=== PATIENT | male | born 1955 | race Caucasian/White ===

== ENCOUNTER 2018-06-19 17:36 | Emergency (ER) | payer MEDICAID, OTHER ==
[~2018-06-19] VITALS: Ht 175.3 cm; Wt 70.3 kg
[2018-06-19] MEDS ORDERED: ONDANSETRON 4 MG/2 ML VIAL IM ONE (17:45)
[2018-06-19] MEDS ORDERED: LISINOPRIL (17:45)
[2018-06-19] MEDS ORDERED: HYDROMORPHONE 1 MG/1 ML DISP.SYRIN IM ONE (17:45)
[2018-06-19] MEDS ORDERED: HYDROMORPHONE 2 MG/1 ML DISP.SYRIN ONE (17:47)
[2018-06-19] MEDS ORDERED: ONDANSETRON 4 MG/2 ML VIAL ONE (17:47)
--- NOTE | 2018-06-19 17:55 | NUR ---
Patient BIB [facility] for c/o back pain x4 days. Patient states pain worsen this AM and unable to ambulate without severe pain
[2018-06-19 18:27] LABS: *BILIRUBIN,URIN NEGATIVE (NEGATIVE); *BLOOD, URINE NEGATIVE (NEGATIVE); *CLARITY,URINE CLEAR (CLEAR); *COLOR,URINE YELLOW (YELLOW); *KETONES,URINE TRACE (NEGATIVE); *UROBILINOGEN,URINE 0.2 E.U./dl (NORMAL); LEUKOCYTE ESTERASE ,URINE NEGATIVE (NEGATIVE); NITRITE, URINE NEGATIVE (NEGATIVE); UGLUCOSE NEGATIVE (NEGATIVE)
--- NOTE | 2018-06-19 18:27 | NUR ---
Dr Sue speaking with [facility]
[2018-06-19 18:36] LABS: MUCUS,URINE FEW /LPF (0-FEW); RBC,URINE 0-3 /HPF (0-3); WBC,URINE 0-3 /HPF (0-3)
--- NOTE | 2018-06-19 18:47 | NUR ---
[facility] [place] [facility] called back with Transfer Info. Patient will be going to [facility] . Doctor Hailey Roberson will be accepting . EVELIA ferrera is [id number]
--- NOTE | 2018-06-19 19:00 | NUR ---
Gave SBAR report to Danielle hawkins from [facility]
[2018-06-19 19:22] VITALS: BP 155/81
[2018-06-19] MEDS ORDERED: CLONIDINE HCL 0.2 MG TABLET ONE (19:22)
--- NOTE | 2018-06-19 19:23 | NUR ---
Patient Tranfers to outside Facility Physician: Dr. Harrison Location: [facility]
[2018-06-19] MEDS ORDERED: CLONIDINE HCL 0.2 MG TABLET PO ONE (19:30)
--- NOTE | 2018-06-19 19:40 | NUR ---
Faina jacob in EDM - 06/19/18 at 2102 by [email or web address] Pt. taken off unit by BLS via stretcher, VSS, NAD, summary report/transfer papers/imaging sent w/ pt.,
--- NOTE | 2018-06-19 19:40 | NUR ---
Pt. transferred off unit at 1939
--- NOTE | 2018-06-19 21:09 | NUR ---
Pt. taken off unit via stretcher for transfer to [place] by ANAN ALTAMIRANO
== END 2018-06-19 19:43 | disposition short-term general hospital (02) ==
LOC: ER 17:38
DX: M54.5 Low back pain (principal); Z88.1 Allergy status to other antibiotic agents; Z79.899 Other long term (current) drug therapy
CPT/HCPCS: 72100; 81001; 96372 ×2; 99285; J1170; J2405; A4663